=== PATIENT | male | born 1965 | race Caucasian/White ===

== ENCOUNTER 2016-12-12 08:35 | Emergency (ER) | payer MEDICARE, MEDICAID ==
[~2016-12-12] VITALS: Ht 185.4 cm; Wt 86.2 kg
[~2016-12-12 08:35] MED LIST: ESCI10TA PO; LOR05T PO; NOR10T PO; Pantoprazole Sodium Sesquihydr PO; SUCR1TAB PO; [UNRECOGNIZED DRUG - CODE] PO
[2016-12-12 09:30] LABS: Urine Bilirubin Negative (Negative); Urine Blood Negative /uL (Negative); Urine Color Yellow (Yellow); Urine Glucose TRACE mg/dL (Normal); Urine Ketone 1+ (Negative); Urine Mucus FEW (None Seen); Urine Nitrite Negative (Negative); Urine RBC 2 /hpf (0 - 3); Urine Squamous Epithelial Cell FEW /hpf (<5)
[2016-12-12 09:52] VITALS: BP 126/69
[2016-12-12] MEDS ORDERED: SODIUM CHLORIDE 0.9% 1,000 ML IVB ONE (09:59)
[2016-12-12] MEDS ORDERED: KETOROLAC TROMETH 30 MG/ML 1ML VIAL IV ONE (10:00)
[2016-12-12] MEDS ORDERED: METOCLOPRAMIDE HCL 5MG/ml INJ 2ml VIAL IV ONE (10:00)
[2016-12-12 10:02] LABS: Basophils # (auto) 0 uL; Basophils % (auto) 0.3 % (0.0-2.0); Eosinophils # (auto) 0 uL; Eosinophils % (auto) 0.2 % (0.0-7.0); Hematocrit 49.3 % (41.0-53.0); Lymphocytes # (auto) 2.1 uL; Lymphocytes % (auto) 17.3 % (10.0-50.0); Mean Corpuscular Hemoglobin 29.3 pg (28.0-32.0); Mean Corpuscular Hgb Conc. 32.4 g/dL (32.0-36.0); Mean Corpuscular Volume 90.3 fL (80.0-100.0); Mean Platelet Volume 9.8 fL (7.4-10.4); Monocytes # (auto) 0.4 uL; Monocytes % (auto) 3.6 % (0.0-12.0); Neutrophils # (auto) 9.5 uL; Neutrophils % (auto) 78.6 % (37.0-80.0); Platelet Count (auto) 285 10^3/uL (140-450); Red Cell Distribution Width 13.6 % (11.6-16.0)
[2016-12-12 10:18] LABS: Albumin 4.4 g/dL (3.4-5.0); BUN/Creatinine Ratio 20.2; Bilirubin, Total 0.5 mg/dL (0.2-1.0); Calcium 10.1 mg/dL (8.5-10.1); Potassium 3.9 mmol/L (3.5-5.1); Total Protein 8.9 g/dL (6.4-8.2)
[2016-12-12 10:22] LABS: Magnesium 2.2 mg/dL (1.6-2.6)
[2016-12-12 10:43] LABS: INR 1.17 (0.9-1.15)
== END 2016-12-12 11:02 | disposition home or self-care (01) ==
LOC: EDUNIT# 08:35 → ER 08:40
DX: K86.1 Other chronic pancreatitis (principal); K21.9 Gastro-esophageal reflux disease without esophagitis; F17.210 Nicotine dependence, cigarettes, uncomplicated; F12.10 Cannabis abuse, uncomplicated; F15.10 Other stimulant abuse, uncomplicated; F11.20 Opioid dependence, uncomplicated; F19.10 Other psychoactive substance abuse, uncomplicated; Z88.0 Allergy status to penicillin; Z53.29 Procedure and treatment not carried out because of patient's decision for other reasons; Z90.49 Acquired absence of other specified parts of digestive tract
CPT/HCPCS: 36415; 74176; 80053; 81001; 83690; 83735; 84443; 84484; 85025; 85049; 85610; 93005; 96361; 96374; 96375; 99285; G0434; J1885; J2765; J7030

== ENCOUNTER 2017-06-09 18:52 | Inpatient (IN) | payer MEDICARE, MEDICAID ==
[~2017-06-09] VITALS: Ht 177.8 cm; Wt 66.0 kg
[2017-06-09] MEDS ORDERED: HYDROmorphone HCL 2 MG/ML VL IV ONE (19:30)
[2017-06-09] MEDS ORDERED: SODIUM CHLORIDE 0.9% 1,000 ML IV ONE (19:30)
[2017-06-09] MEDS ORDERED: ONDANSETRON HCL 4 MG/2 ML VIAL IV ONE (19:30)
[2017-06-09 19:52] LABS: Basophils # (auto) 0.2 uL; Basophils % (auto) 1.6 % (0.0-2.0); CONDITION Y; Eosinophils # (auto) 0 uL; Hematocrit 53.3 % (41.0-53.0); Hemoglobin 18.2 g/dL (13.5-17.5); Lymphocytes # (auto) 1.2 uL; Lymphocytes % (auto) 10.8 % (10.0-50.0); Mean Corpuscular Hgb Conc. 34.2 g/dL (32.0-36.0); Mean Corpuscular Volume 90.7 fL (80.0-100.0); Mean Platelet Volume 9.6 fL (7.4-10.4); Monocytes # (auto) 0.9 uL; Monocytes % (auto) 8.4 % (0.0-12.0); Neutrophils # (auto) 8.9 uL; Neutrophils % (auto) 79.2 % (37.0-80.0); Platelet Count (auto) 327 10^3/uL (140-450); Red Cell Distribution Width 13.9 % (11.6-16.0); White Blood Cell 11.3 10^3/uL (4.4-10.8)
[2017-06-09 20:52] LABS: Aspartate Aminotransferase 57 U/L (15-37)
[2017-06-09 20:57] LABS: Anion Gap 28 (5-15); BUN/Creatinine Ratio 9.4; Carbon Dioxide 17 mmol/L (21-32); Chloride 88 mmol/L (98-107); GFR African American 5 mL/min; GFR Non-African American 4 mL/min; Glucose 97 mg/dL (74-106); Sodium 133 mmol/L (136-145)
[2017-06-09 20:58] LABS: Albumin 4.8 g/dL (3.4-5.0); Alkaline Phosphatase 130 U/L (45-117); Amylase 184 U/L (25-115); Bilirubin, Total 0.9 mg/dL (0.2-1.0); Calcium 9.7 mg/dL (8.5-10.1); Total Protein 10.6 g/dL (6.4-8.2)
[2017-06-09 21:09] LABS: Blood Urea Nitrogen 136 mg/dL (7-18); Potassium 5.8 mmol/L (3.5-5.1)
[2017-06-09] MEDS ORDERED: SODIUM POLYSTYRENE SULF 15GM/60ML SUSP PO ONE (21:15)
[2017-06-09 22:38] LABS: Allen Test Yes; Base Excess -14.8 mmol/L (-2.0-2.0); Blood 02Sat 85.9 % (96-100); Blood COHb 0.6 % (0.5-1.5); Blood MetHb 0.4 % (0.0-1.5); HCO3 14.2 mmol/L (22-26.0); MODE ROOM AIR; PCO2 44.1 mmHg (35.0-45.0); PCO2(T) 44.1 mmHg (35.0-45.0); PO2 65.4 mmHg (80.0-100.0); PO2(T) 65.4 mmHg (80.0-100.0); Sample Type Arterial; pH 7.126 (7.350-7.450)
[2017-06-10] MEDS ORDERED: SODIUM CHLORIDE 0.9% 1,000 ML IV ONE
[2017-06-10] MEDS ORDERED: MORPHINE SULF INJ 2 MG/ML SYRINGE 1ML IV PRN (03:45)
[2017-06-10] MEDS ORDERED: SODIUM BICARBONATE 8.4 % INJ 50ML VIAL IV ONE (03:45)
[2017-06-10] MEDS ORDERED: NITROGLYCERIN 0.4 MG SL TAB SL PRN (03:45)
[2017-06-10] MEDS ORDERED: ONDANSETRON HCL 4 MG/2 ML VIAL IV PRN (03:45)
[2017-06-10] MEDS ORDERED: SODIUM CHLORIDE 0.9% 1,000 ML IV SCH (03:45)
[2017-06-10] MEDS ORDERED: LACTULOSE 20Gm/30ML SOLN PO PRN (03:45)
[2017-06-10] MEDS ORDERED: TEMAZEPAM 15 MG CAP PO PRN (03:45)
[2017-06-10] MEDS ORDERED: metroNIDAZOLE 500MG/100ML 100 ML IV ONE ×2 (04:00)
[2017-06-10 04:42] LABS: Basophils # (auto) 0.1 uL; Basophils % (auto) 0.5 % (0.0-2.0); CONDITION Y; Eosinophils # (auto) 0 uL; Hematocrit 49.6 % (41.0-53.0); Hemoglobin 17.1 g/dL (13.5-17.5); Lymphocytes # (auto) 1.6 uL; Lymphocytes % (auto) 9.9 % (10.0-50.0); Mean Corpuscular Hemoglobin 31.5 pg (28.0-32.0); Mean Corpuscular Hgb Conc. 34.6 g/dL (32.0-36.0); Mean Corpuscular Volume 91.2 fL (80.0-100.0); Mean Platelet Volume 9.8 fL (7.4-10.4); Monocytes # (auto) 1.5 uL; Neutrophils # (auto) 13.2 uL; Neutrophils % (auto) 80.6 % (37.0-80.0); Platelet Count (auto) 311 10^3/uL (140-450); Red Cell Distribution Width 13.5 % (11.6-16.0); White Blood Cell 16.3 10^3/uL (4.4-10.8)
[2017-06-10 04:51] LABS: Urine Bilirubin Negative (Negative); Urine Color PINK (Yellow); Urine Glucose Normal (Normal); Urine Granular Cast MOD /lpf (0); Urine Hyaline Cast MANY /lpf (0 - 2); Urine Ketone Negative (Negative); Urine Mucus FEW (None Seen); Urine Nitrite Negative (Negative); Urine RBC 301 /hpf (0 - 3); Urine Squamous Epithelial Cell FEW /hpf (<5); Urine Urobilinogen Normal (Negative)
[2017-06-10 04:52] LABS: Urine Blood 2+ /uL (Negative)
[2017-06-10 05:00] LABS: BUN/Creatinine Ratio 9.8; Calcium 8.1 mg/dL (8.5-10.1); Potassium 5.4 mmol/L (3.5-5.1)
[2017-06-10 05:03] LABS: Bilirubin, Total 0.6 mg/dL (0.2-1.0); Total Protein 8.8 g/dL (6.4-8.2)
[2017-06-10 08:00] VITALS: BP 119/58
[2017-06-10] MEDS ORDERED: PANTOPRAZOLE SODIUM 40 MG/10 ML VIAL IV SCH (10:00)
[2017-06-10 10:37] VITALS: BP 119/58
[2017-06-10] MEDS: FAMOTIDINE (10MG/ML) 2ML VL IV SCH ×2 (12:06→21:56)
[2017-06-10] MEDS: SODIUM BICARBONATE 50ML VIAL 100 ML in D5W 5% 1,000 ML IV SCH ×2 (12:06→19:00)
[2017-06-10 13:00] VITALS: BP 140/54
[2017-06-10] MEDS: metroNIDAZOLE 500MG/100ML 100 ML IV SCH ×2 (14:10→21:56)
[2017-06-10] MEDS ORDERED: cefTRIAXone 1GM/50ML D5W 50 ML IV ONE (17:30)
[2017-06-10 22:00] VITALS: BP 108/70
[2017-06-11] VITALS (7 sets, daily range): BP systolic 115–155; BP diastolic 56–90
[2017-06-11] MEDS: SODIUM BICARBONATE 50ML VIAL 100 ML in D5W 5% 1,000 ML IV SCH ×2 (01:49→10:19)
[2017-06-11] MEDS: metroNIDAZOLE 500MG/100ML 100 ML IV SCH ×3 (05:34→21:06)
[2017-06-11] MEDS: cefTRIAXone 1GM/50ML D5W 50 ML IV SCH (08:55)
[2017-06-11] MEDS: FAMOTIDINE (10MG/ML) 2ML VL IV SCH ×2 (08:55→21:06)
[2017-06-11] MEDS ORDERED: GOLYTELY 4L KIT PO ONE (11:15)
[2017-06-11] MEDS: MORPHINE SULF INJ 2 MG/ML SYRINGE 1ML IV PRN ×3 (12:50→21:07)
[2017-06-11] MEDS: LORazepam 0.5 MG TAB PO PRN ×2 (13:36→21:07)
[2017-06-11 15:03] LABS: Basophils # (auto) 0 uL; Basophils % (auto) 0.4 % (0.0-2.0); CONDITION Y; Eosinophils # (auto) 0 uL; Eosinophils % (auto) 0.1 % (0.0-7.0); Hematocrit 39.3 % (41.0-53.0); Hemoglobin 13.5 g/dL (13.5-17.5); Lymphocytes # (auto) 1.8 uL; Lymphocytes % (auto) 15.8 % (10.0-50.0); Mean Corpuscular Hemoglobin 31.2 pg (28.0-32.0); Mean Corpuscular Hgb Conc. 34.5 g/dL (32.0-36.0); Mean Corpuscular Volume 90.5 fL (80.0-100.0); Mean Platelet Volume 9.3 fL (7.4-10.4); Monocytes # (auto) 1.2 uL; Monocytes % (auto) 10.3 % (0.0-12.0); Neutrophils # (auto) 8.5 uL; Neutrophils % (auto) 73.4 % (37.0-80.0); Platelet Count (auto) 267 10^3/uL (140-450); White Blood Cell 11.5 10^3/uL (4.4-10.8)
[2017-06-11 15:12] LABS: Albumin 3.2 g/dL (3.4-5.0); BUN/Creatinine Ratio 28.1; Bilirubin, Total 0.5 mg/dL (0.2-1.0); Calcium 7.7 mg/dL (8.5-10.1)
[2017-06-11 15:23] LABS: Potassium 2.8 mmol/L (3.5-5.1)
[2017-06-11] MEDS ORDERED: POTASSIUM CHL 20 Meq TABLET PO ONE (15:30)
[2017-06-11] MEDS: SOD CHL 0.45% WITH 20MEQ KCL 1,000 ML IV SCH (15:47)
[2017-06-11 16:33] LABS: INR 1.18 (0.9-1.15); Partial Thromboplastin Time 28.7 sec (22.64-33.71)
[2017-06-11 16:37] LABS: Prothrombin Time 12.9 sec (9.37-12.3)
[2017-06-12] VITALS (7 sets, daily range): BP systolic 118–153; BP diastolic 72–88
[2017-06-12] MEDS: SOD CHL 0.45% WITH 20MEQ KCL 1,000 ML IV SCH (03:04)
[2017-06-12] MEDS: metroNIDAZOLE 500MG/100ML 100 ML IV SCH ×3 (04:54→21:40)
[2017-06-12] MEDS: MORPHINE SULF INJ 2 MG/ML SYRINGE 1ML IV PRN ×3 (05:18→21:33)
[2017-06-12] MEDS: cefTRIAXone 1GM/50ML D5W 50 ML IV SCH (09:26)
[2017-06-12] MEDS: FAMOTIDINE (10MG/ML) 2ML VL IV SCH ×2 (09:26→21:33)
[2017-06-12] MEDS ORDERED: diphenhdrAMINE HCL 50 MG/1 ML VL IV ONE (10:00)
[2017-06-12 10:46] LABS: Albumin 3.5 g/dL (3.4-5.0); BUN/Creatinine Ratio 48.6; Bilirubin, Total 0.6 mg/dL (0.2-1.0); Calcium 8.6 mg/dL (8.5-10.1); Potassium 3.2 mmol/L (3.5-5.1); Total Protein 7.4 g/dL (6.4-8.2)
[2017-06-12] MEDS ORDERED: SODIUM CHLORIDE LOCK 10 ML ONE (11:28)
[2017-06-12] MEDS: MIDAZOLAM HCL 5 MG/ML-1ML VIAL ONE ×5 (12:24→12:34)
[2017-06-12] MEDS: diphenhdrAMINE HCL 50 MG/1 ML VL ONE (12:24)
[2017-06-12] MEDS: fentaNYL CITRATE 100 MCG/2 ML VL ONE ×4 (12:24→12:34)
[2017-06-12] MEDS ORDERED: SOD CHL 0.45% WITH 20MEQ KCL 1,000 ML IV SCH (15:30)
[2017-06-12] MEDS ORDERED: POTASSIUM CHLORIDE 40 MEQ in SOD CHL 0.45% 1,000 ML IV SCH (16:00)
[2017-06-12] MEDS: LORazepam 0.5 MG TAB PO PRN (21:32)
[2017-06-12] MEDS ORDERED: TEMAZEPAM 15 MG CAP PO PRN (23:45)
[2017-06-12] MEDS ORDERED: ONDANSETRON HCL 4 MG/2 ML VIAL IV PRN (23:45)
[2017-06-12] MEDS ORDERED: MORPHINE SULF INJ 2 MG/ML SYRINGE 1ML IV PRN ×2 (23:45)
[2017-06-12] MEDS ORDERED: NITROGLYCERIN 0.4 MG SL TAB SL PRN (23:45)
[2017-06-13] VITALS (7 sets, daily range): BP systolic 121–163; BP diastolic 75–87
[2017-06-13] MEDS: POTASSIUM CHLORIDE 40 MEQ in SOD CHL 0.45% 1,000 ML IV SCH ×2 (00:15→09:19)
[2017-06-13] MEDS ORDERED: LACTULOSE 20Gm/30ML SOLN PO PRN ×2 (00:15→04:15)
[2017-06-13] MEDS ORDERED: LORazepam 0.5 MG TAB PO PRN (00:15)
[2017-06-13] MEDS ORDERED: NITROGLYCERIN 0.4 MG SL TAB SL PRN (04:15)
[2017-06-13] MEDS ORDERED: ONDANSETRON HCL 4 MG/2 ML VIAL IV PRN (04:15)
[2017-06-13] MEDS ORDERED: TEMAZEPAM 15 MG CAP PO PRN (04:15)
[2017-06-13] MEDS ORDERED: MORPHINE SULF INJ 2 MG/ML SYRINGE 1ML IV PRN (04:15)
[2017-06-13] MEDS ORDERED: metroNIDAZOLE 500MG/100ML 100 ML IV SCH ×2 (06:00)
[2017-06-13] MEDS ORDERED: CLON0.5T PO (06:13)
[2017-06-13] MEDS ORDERED: [UNRECOGNIZED DRUG - CODE] PO (06:19)
[2017-06-13] MEDS: MORPHINE SULF INJ 2 MG/ML SYRINGE 1ML IV PRN ×4 (08:00→22:12)
[2017-06-13 08:17] LABS: Albumin 2.8 g/dL (3.4-5.0); BUN/Creatinine Ratio 19.6
[2017-06-13 08:26] LABS: Bilirubin, Total 0.4 mg/dL (0.2-1.0); Total Protein 6.4 g/dL (6.4-8.2)
[2017-06-13 08:28] LABS: Potassium 3.7 mmol/L (3.5-5.1)
[2017-06-13 08:29] LABS: Magnesium 1.4 mg/dL (1.6-2.6)
[2017-06-13] MEDS ORDERED: cefTRIAXone 1GM/50ML D5W 50 ML IV SCH ×2 (09:00)
[2017-06-13] MEDS: metroNIDAZOLE 500MG/100ML 100 ML IV SCH ×2 (09:20→17:00)
[2017-06-13] MEDS: FAMOTIDINE (10MG/ML) 2ML VL IV SCH ×2 (09:20→22:03)
[2017-06-13] MEDS ORDERED: FAMOTIDINE (10MG/ML) 2ML VL IV SCH (10:00)
[2017-06-13] MEDS: cefTRIAXone 1GM/50ML D5W 50 ML IV SCH (12:08)
[2017-06-13] MEDS: MUPIROCIN 2% OINT 22GM EACHNOSTRI SCH ×2 (12:09→22:02)
[2017-06-13] MEDS: SOD CHL 0.45% WITH 20MEQ KCL 1,000 ML IV SCH (14:30)
[2017-06-13] MEDS ORDERED: LORazepam 2MG/ML-1ML VIAL IM ONE (16:45)
[2017-06-13] MEDS ORDERED: LORazepam 2MG/ML-1ML VIAL IV PRN (16:45)
[2017-06-13 17:09] LABS: Phosphorus 1.8 mg/dL (2.5-4.90)
[2017-06-14] MEDS: metroNIDAZOLE 500MG/100ML 100 ML IV SCH ×2 (01:08→09:13)
[2017-06-14] MEDS: SOD CHL 0.45% WITH 20MEQ KCL 1,000 ML IV SCH (03:50)
[2017-06-14] MEDS: MORPHINE SULF INJ 2 MG/ML SYRINGE 1ML IV PRN ×3 (04:08→09:14)
[2017-06-14 05:40] VITALS: BP 141/91
[2017-06-14 08:00] VITALS: BP 126/87
[2017-06-14 08:49] LABS: Albumin 3.3 g/dL (3.4-5.0); BUN/Creatinine Ratio 10.8; Bilirubin, Total 0.4 mg/dL (0.2-1.0); Calcium 8.2 mg/dL (8.5-10.1); Potassium 3.7 mmol/L (3.5-5.1); Total Protein 7.4 g/dL (6.4-8.2)
[2017-06-14 09:02] VITALS: BP 126/87
[2017-06-14] MEDS: FAMOTIDINE (10MG/ML) 2ML VL IV SCH (10:46)
[2017-06-14] MEDS: cefTRIAXone 1GM/50ML D5W 50 ML IV SCH (10:46)
[2017-06-14] MEDS: MUPIROCIN 2% OINT 22GM EACHNOSTRI SCH (10:46)
[2017-06-14 12:19] VITALS: BP 126/87
[2017-06-14 13:00] VITALS: BP 126/87
== END 2017-06-14 14:50 | disposition home or self-care (01) | DRG 438 ==
LOC: EDUNIT# 18:52 → ER 18:59 → TELE 19:00 → TELE-WESTW 06-10 08:04
PROVIDERS: ADMIT Nurse Practitioner Family; ATTEND Internal Medicine Pulmonary Disease
PROC: 0DBP8ZX Excision of Rectum, Via Natural or Artificial Opening Endoscopic, Diagnostic (ICD-10-PCS; principal; 2017-06-12 12:19)
DX: K85.90 Acute pancreatitis without necrosis or infection, unspecified (principal); N17.0 Acute kidney failure with tubular necrosis; E87.1 Hypo-osmolality and hyponatremia; E87.2 Acidosis; K62.6 Ulcer of anus and rectum; K86.1 Other chronic pancreatitis; E87.5 Hyperkalemia; F15.90 Other stimulant use, unspecified, uncomplicated; E87.6 Hypokalemia; F17.210 Nicotine dependence, cigarettes, uncomplicated; K21.9 Gastro-esophageal reflux disease without esophagitis; K52.9 Noninfective gastroenteritis and colitis, unspecified; F19.10 Other psychoactive substance abuse, uncomplicated; B19.20 Unspecified viral hepatitis C without hepatic coma; G89.29 Other chronic pain; N20.0 Calculus of kidney; Z59.0 Homelessness; Z79.899 Other long term (current) drug therapy; Z87.11 Personal history of peptic ulcer disease; Z90.49 Acquired absence of other specified parts of digestive tract
CPT/HCPCS: 36415; 36600; 45380; 71010; 74176; 76700; 80053; 80307; 80320; 81001; 82140; 82150; 82550; 82570; 82805; 83690; 83735; 84100; 84156; 84300; 84484; 85025; 85610; 85730; 86160; 86803; 87040; 87045; 87081; 87340; 87493; 87899; 93005; 96361; 96365; 96375; J0696; J2250; J2405; J3490

== ENCOUNTER 2017-07-13 06:20 | Emergency (ER) | payer MEDICARE, MEDICAID ==
[~2017-07-13] VITALS: Ht 182.9 cm; Wt 86.2 kg
[~2017-07-13 06:20] MED LIST changes: +CLON0.5T PO; -LOR05T PO
[2017-07-13] MEDS ORDERED: SODIUM CHLORIDE 0.9% 1,000 ML IVB ONE (08:04)
[2017-07-13] MEDS ORDERED: PROMETHAZINE HCL 25 MG/ML 1ML IV PRN (08:15)
[2017-07-13 09:27] LABS: Basophils # (auto) 0.1 uL; Basophils % (auto) 0.7 % (0.0-2.0); CONDITION Y; Eosinophils # (auto) 0 uL; Eosinophils % (auto) 0.1 % (0.0-7.0); Hematocrit 40.5 % (41.0-53.0); Hemoglobin 13.9 g/dL (13.5-17.5); Lymphocytes # (auto) 3.2 uL; Lymphocytes % (auto) 30.6 % (10.0-50.0); Mean Corpuscular Hemoglobin 31.4 pg (28.0-32.0); Mean Corpuscular Hgb Conc. 34.3 g/dL (32.0-36.0); Mean Corpuscular Volume 91.7 fL (80.0-100.0); Mean Platelet Volume 10.1 fL (7.4-10.4); Monocytes # (auto) 0.9 uL; Monocytes % (auto) 9.1 % (0.0-12.0); Neutrophils # (auto) 6.2 uL; Neutrophils % (auto) 59.5 % (37.0-80.0); Platelet Count (auto) 195 10^3/uL (140-450); Red Cell Distribution Width 15.2 % (11.6-16.0); White Blood Cell 10.4 10^3/uL (4.4-10.8)
[2017-07-13] MEDS ORDERED: NALBUPHINE HCL 10 MG/1ml INJECTION IV ONE (11:00)
[2017-07-13 12:05] LABS: Urine RBC None Seen /hpf (0 - 3)
[2017-07-13 12:08] LABS: Albumin 3.6 g/dL (3.4-5.0); BUN/Creatinine Ratio 18.6; Bilirubin, Total 0.7 mg/dL (0.2-1.0); Calcium 8.5 mg/dL (8.5-10.1); Potassium 3.5 mmol/L (3.5-5.1); Total Protein 7.2 g/dL (6.4-8.2)
[2017-07-13 12:41] LABS: Urine Bilirubin Negative (Negative); Urine Blood Negative /uL (Negative); Urine Color Yellow (Yellow); Urine Glucose Normal (Normal); Urine Ketone Negative (Negative); Urine Nitrite Negative (Negative); Urine Urobilinogen Normal (Negative); Urine pH 6.5 (5.0-8.0)
[2017-07-13 13:38] VITALS: BP 163/103
== END 2017-07-13 13:42 | disposition home or self-care (01) ==
LOC: EDBD 06:20 → ER 06:28
DX: G89.4 Chronic pain syndrome (principal); R10.13 Epigastric pain; K21.9 Gastro-esophageal reflux disease without esophagitis; K85.90 Acute pancreatitis without necrosis or infection, unspecified; F17.210 Nicotine dependence, cigarettes, uncomplicated; Z59.0 Homelessness; Z88.0 Allergy status to penicillin; Z90.49 Acquired absence of other specified parts of digestive tract
CPT/HCPCS: 36415; 80053; 80307; 81001; 83690; 83735; 84443; 85025; 96361; 96374; 96375; 99284; J2300; J2550; J7030